=== PATIENT | female | born 2000 | race African-American/Black ===

== ENCOUNTER 2024-07-24 17:21 | Inpatient (IN) | payer MEDICAID ==
[~2024-07-24] VITALS: Ht 149.9 cm; Wt 49.9 kg
[2024-07-24] MEDS: MORPHINE SULFATE 4 MG/ML INJ (FOR IV/IM USE) IV STA (19:19)
[2024-07-24] MEDS: ONDANSETRON HCL 4MG/2ML INJ IV STA (19:20)
[2024-07-24] MEDS: LEVETIRACETAM 500MG PREMIX 100 ML IV ONE (19:20)
[2024-07-24] MEDS: SODIUM CHLORIDE 0.9% 1,000 ML IV ONE (19:20)
[2024-07-24] MEDS: TETANUS, DIPHTHERIA, PERTUSSIS VAC/PF 0.5ML (>10YR OLD) IM ONE (19:24)
[2024-07-24] MEDS: LIDOCAINE HCL/EPINEPHRINE 1%-EPI 1:100,000 20ML VIAL INFIL ONE (20:00)
[2024-07-24 20:15] LABS: BASOPHILS % 0.7 % (0.0-2.0); EOSINOPHILS % 0.1 % (0.0-5.0); HEMATOCRIT. 34.5 % (36.0-48.0); HEMOGLOBIN. 11.6 g/dL (12.0-16.0); LYMPHOCYTES % 8.1 % (20.0-50.0); MEAN CORPUSCULAR HEMOGLOBIN 31.3 pg (28.0-32.0); MEAN CORPUSCULAR HGB CONC 33.6 g/dL (31.0-37.0); MEAN CORPUSCULAR VOLUME 93.1 fL (81.0-99.0); MEAN PLATELET VOLUME 8.7 fl (7.4-10.4); MONOCYTES % 4.9 % (2.0-8.0); NEUTROPHILS % 86.2 % (40.0-76.0); PLATELET 169 x1000/uL (130-400); RED CELL DISTRIBUTION WIDTH 12.5 % (11.6-14.6); WHITE BLOOD COUNT 11.6 x1000/uL (4.5-11.0)
[2024-07-24] MEDS ORDERED: CEFAZOLIN 1000MG PREMIX 50 ML IV ONE (20:15)
[2024-07-24 20:19] LABS: CHLORIDE 111 mEq/L (98-107); POTASSIUM 3.8 mEq/L (3.5-5.1); SODIUM 140 mEq/L (136-145)
[2024-07-24 20:20] LABS: CARBON DIOXIDE 25 mEq/L (21-32)
[2024-07-24 20:21] LABS: CALCIUM 8.2 mg/dL (8.7-10.4)
[2024-07-24 20:25] LABS: CREATININE 0.6 mg/dL (0.6-1.0); GLUCOSE 87 mg/dL (70-105)
[2024-07-24 20:26] LABS: UREA NITROGEN BLOOD 11 mg/dL (9-23)
[2024-07-24 21:46] LABS: HCG SCREEN NEGATIVE
[2024-07-24] MEDS ORDERED: TETANUS, DIPHTHERIA, PERTUSSIS VAC/PF 0.5ML (>10YR OLD) IM ONE (22:00)
[2024-07-24] MEDS: AMPICILLIN SOD/SULBACTAM NA 3 G in SODIUM CHLORIDE 0.9% 100 ML IV STA (22:42)
[2024-07-24] MEDS: CEFAZOLIN 1,000 MG in DEXTROSE 5% WATER 50 ML IV NR (23:26)
[2024-07-25] MEDS: ONDANSETRON HCL 4MG/2ML INJ IV STA (00:32)
[2024-07-25] MEDS: MORPHINE SULFATE 4 MG/ML INJ (FOR IV/IM USE) IV STA (00:33)
[2024-07-25] MEDS ORDERED: CLONIDINE 0.1MG TABLET PO PRN (02:15)
[2024-07-25] MEDS ORDERED: IPRATROPIUM/ALBUTEROL 0.5-3(2.5)MG/3ML NEB HHN PRN (02:15)
[2024-07-25] MEDS ORDERED: GUAIFENESIN 200MG/10ML SUGAR FREE UDC PO PRN (02:15)
[2024-07-25] MEDS ORDERED: ONDANSETRON HCL 4MG/2ML INJ IV PRN (02:15)
[2024-07-25] MEDS ORDERED: DOCUSATE SODIUM 100MG CAPSULE PO PRN (02:15)
[2024-07-25] MEDS ORDERED: MAGNESIUM/ALUMINUM HYDROXIDE/SIMETHICONE 30ML UDC PO PRN (02:15)
[2024-07-25] MEDS ORDERED: ACETAMINOPHEN 325MG TABLET PO PRN ×2 (02:15)
[2024-07-25] MEDS: SODIUM CHLORIDE 0.9% 1,000 ML IV SCH (02:44)
[2024-07-25 02:57] LABS: CREATINE KINASE 177 IU/L (34-145)
[2024-07-25 04:05] LABS: BASOPHILS % 0.6 % (0.0-2.0); EOSINOPHILS % 0.1 % (0.0-5.0); HEMATOCRIT. 35.3 % (36.0-48.0); HEMOGLOBIN. 11.5 g/dL (12.0-16.0); LYMPHOCYTES % 21.8 % (20.0-50.0); MEAN CORPUSCULAR HEMOGLOBIN 30.2 pg (28.0-32.0); MEAN CORPUSCULAR HGB CONC 32.5 g/dL (31.0-37.0); MEAN CORPUSCULAR VOLUME 92.7 fL (81.0-99.0); MEAN PLATELET VOLUME 8.8 fl (7.4-10.4); MONOCYTES % 10.8 % (2.0-8.0); NEUTROPHILS % 66.7 % (40.0-76.0); PLATELET 172 x1000/uL (130-400); RED BLOOD CELL COUNT 3.81 mill/uL (4.2-5.4); RED CELL DISTRIBUTION WIDTH 12.7 % (11.6-14.6); WHITE BLOOD COUNT 11.9 x1000/uL (4.5-11.0)
[2024-07-25 04:11] LABS: CHLORIDE 110 mEq/L (98-107); POTASSIUM 3.9 mEq/L (3.5-5.1); SODIUM 139 mEq/L (136-145)
[2024-07-25 04:12] LABS: CALCIUM 8.5 mg/dL (8.7-10.4); CARBON DIOXIDE 24 mEq/L (21-32)
[2024-07-25 04:17] LABS: CREATININE 0.6 mg/dL (0.6-1.0); GLUCOSE 83 mg/dL (70-105); TRIGLYCERIDE 63 mg/dL (0-150); UREA NITROGEN BLOOD 7 mg/dL (9-23)
[2024-07-25 04:18] LABS: LDL CHOLESTEROL 60 mg/dL (5-100)
[2024-07-25 04:19] LABS: ALANINE AMINOTRANSFERASE < 7 IU/L (10-49); ALBUMIN 3.9 g/dL (3.2-4.8); ASPARTATE AMINOTRANSFERASE 20 IU/L (<34); BILIRUBIN DIRECT 0.3 mg/dL (<=3.0); BILIRUBIN TOTAL 1.1 mg/dL (0.1-1.0); CHOLESTEROL 142 mg/dL (<200); HDL CHOLESTEROL 67 mg/dL (>65); PHOSPHORUS 2.6 mg/dL (2.5-4.9); PROTEIN TOTAL 6.1 g/dL (6.0-8.3)
[2024-07-25 04:21] LABS: T4 FREE 1.38 ng/dL (0.89-1.76); THYROID STIMULATING HORMONE 0.89 uIU/mL (0.55-4.78)
[2024-07-25 04:40] VITALS: BP 117/70; PULSE 69; RESP 19; TEMP 36.5848
[2024-07-25] MEDS ORDERED: LEVE1000 PO (06:18)
[2024-07-25 08:00] VITALS: BP 109/68; PULSE 64; RESP 18; TEMP 36.55848; O2SAT 99
[2024-07-25] MEDS: LEVETIRACETAM 500MG PREMIX 100 ML IV SCH (09:43)
[2024-07-25 12:00] VITALS: BP 105/77; PULSE 78; RESP 18; TEMP 36.72516; O2SAT 98
[2024-07-25 15:37] LABS: CLARITY URINE CLEAR (CLEAR); COLOR URINE YELLOW (YELLOW); GLUCOSE URINE NEGATIVE (NEGATIVE); KETONES URINE 3+ (NEGATIVE); LEUKOCYTE ESTERASE URINE NEGATIVE (NEGATIVE); NITRITE URINE NEGATIVE (NEGATIVE); OCCULT BLOOD URINE NEGATIVE (NEGATIVE); PROTEIN URINE NEGATIVE (NEGATIVE); SPECIFIC GRAVITY URINE 1.021 (1.005-1.030); UROBILINOGEN URINE 0.2 E.U./dL (0.2-1.0)
[2024-07-25 15:44] LABS: *AMPHETAMINES SCREEN URINE NEGATIVE (NEGATIVE)
[2024-07-25 15:45] LABS: *BARBITURATES SCREEN URINE NEGATIVE (NEGATIVE); *BENZODIAZEPINES SCREEN URINE NEGATIVE (NEGATIVE); *COCAINE SCREEN URINE NEGATIVE (NEGATIVE); CANNABINOID URINE SCREEN PRESUMPTIVE POSITIVE (NEGATIVE); ECSTASY MDMA SCREEN URINE NEGATIVE (NEGATIVE); METHADONE URINE SCREEN NEGATIVE (NEGATIVE); OPIATES URINE SCREEN PRESUMPTIVE POSITIVE (NEGATIVE); PHENCYCLIDINE URINE SCREEN NEGATIVE (NEGATIVE)
[2024-07-25 16:00] VITALS: BP 106/72; PULSE 69; RESP 18; TEMP 37.39188; O2SAT 96
[2024-07-25] MEDS: DEXT 5%/0.9% NACL 1,000 ML IV SCH (17:10)
[2024-07-25 20:09] VITALS: BP 107/67; PULSE 64; RESP 18; TEMP 36.55848; O2SAT 98
[2024-07-25 20:12] VITALS: BP 107/67; PULSE 64; TEMP 97.8; O2SAT 98
[2024-07-25] MEDS: LEVETIRACETAM 1000MG PREMIX 100 ML IV SCH ×2 (20:36→21:02)
[2024-07-25] MEDS ORDERED: LEVETIRACETAM 1,000MG in NACL 100ML PREMIX IV SCH (21:00)
[2024-07-29 13:11] LABS: ETHANOL URINE Negative % (Cutoff=0.020)
== END 2024-07-25 22:18 | disposition short-term general hospital (02) | DRG 53 ==
LOC: ER 17:21 → 7WST 07-25 00:11 → EDBEDREQDT 07-25 03:20 → EDBEDREQTM 07-25 03:20 → EDBEDREQ 07-25 03:20
PROVIDERS: ADMIT Internal Medicine; ATTEND Internal Medicine
PROC: 0CQ1XZZ Repair Lower Lip, External Approach (ICD-10-PCS; principal; 2024-07-24)
PROC: 0CQ0XZZ Repair Upper Lip, External Approach (ICD-10-PCS; 2024-07-24)
DX: G40.909 Epilepsy, unspecified, not intractable, without status epilepticus (principal); S02.401A Maxillary fracture, unspecified side, initial encounter for closed fracture; D72.829 Elevated white blood cell count, unspecified; S01.511A Laceration without foreign body of lip, initial encounter; F17.200 Nicotine dependence, unspecified, uncomplicated; W18.30XA Fall on same level, unspecified, initial encounter; Y93.89 Activity, other specified; Y92.89 Other specified places as the place of occurrence of the external cause; Y99.8 Other external cause status
CPT/HCPCS: 36415; 70486; 80048; 80061; 80076; 80305; 80320; 81003; 82550; 82962; 83605; 83735; 84100; 84439; 84443; 84703; 85025; 90715; 93005; 99285; J0295; J0690; J1953; J2270; J2405; J3490; J7030; J7042; J7050; J7060